=== PATIENT | female | born 1955 | race Caucasian/White ===

== ENCOUNTER 2019-12-01 10:35 | Outpatient (CLI) | payer MEDICARE, OTHER, SELFPAY ==
--- NOTE | ~2019-12-01 | XR_ITS ---
XR lumbar spine 2-3V DATE: 12/01/2019 11:25 INDICATION: Low back pain radiating to both hips TECHNIQUE: AP, lateral, coned lateral lumbosacral views COMPARISON: None FINDINGS: Diffuse osteopenia. There is degenerative change at the apophyseal joints at L4-5 and L5-S1 and associated grade 1 vlad listhesis at L4-5. No fracture or bone destruction. The included lower thoracic and lumbar pedicles are intact. The lumb ar and lumbosacral interspaces are well preserved. The sacroiliac joints are normal. Osteopenia is suggested. IMPRESSION: Degenerative change of the lower lumbar and lumbosacral apophyseal joints with associated grade 1 anterolisthesis at L4-5 Reviewed, dictated and finalized at location A.
--- NOTE | ~2019-12-01 | XR_ITS ---
XR hip BI wo pelvis DATE: 12/01/2019 11:25 INDICATION: Low back pain, bilateral hip pain. TECHNIQUE: AP and lateral views of each hip COMPARISON: None FINDINGS: No fracture or dislocation, avascular necrosis or bone destruction is evident. The hip join t spaces are preserved. The pubic symphysis and sacroiliac joints are intact. IMPRESSION: No significant abnormality of either hip Reviewed, dictated and finalized at location A.
== END 2019-12-01 10:36 | disposition home or self-care (01) ==
PROVIDERS: PCP Internal Medicine; Visit Provider Internal Medicine
DX: M54.5 Low back pain (principal); M54.10 Radiculopathy, site unspecified; M25.552 Pain in left hip; M25.551 Pain in right hip
CPT/HCPCS: 72100; 73521

== ENCOUNTER 2020-02-06 01:56 | Outpatient (CLI) | payer MEDICARE, OTHER, SELFPAY ==
[2020-02-06 19:02] LABS: SARS-CoV-2 RNA PCR Negative
== END 2020-02-06 01:57 | disposition home or self-care (01) ==
LOC: ANHCOVIDDT 01:57
PROVIDERS: PCP Internal Medicine; Visit Provider Surgery
DX: Z01.812 Encounter for preprocedural laboratory examination (principal); Z20.828 Contact with and (suspected) exposure to other viral communicable diseases
CPT/HCPCS: 87635; C9803; U0003

== ENCOUNTER 2020-02-08 00:48 | Day surgery (SDC) | payer MEDICARE, SELFPAY ==
[2020-02-02 13:04] VITALS: BMI 22.6
[2020-02-08 06:31] VITALS: BP 139/91; PULSE 75; RESP 16; TEMP 37; O2SAT 100; BMI 23.4
[2020-02-08] MEDS: LACTATED RINGERS 1,000 ML 150 ML IV CONT (06:47)
--- NOTE | 2020-02-08 06:50 | WPDANESEPPF ---
Anes - Initial Pre Proc Eval Procedure: Operation Date: 02/08/20 07:30 Proposed Procedures p Screening Colonoscopy - Ed Garza DO Date/Time: 02/08/20 06:50 Surgeon: Ed Garza DO Pre Op Diagnosis: Neoplasm Screening Patient Data Age: 64 Gender: F Height: 5 ft 3 in Weight: 60 kg Last Vital Signs Temp 98.6 F 02/08/20 06:31 Pulse 75 02/08/20 06:31 Resp 16 02/08/20 06:31 BP 139/91 H 02/08/20 06:31 Pulse Ox 100 02/08/20 06:31 Allergies Allergy/AdvReac Type Severity Reaction Status Date / Time Penicillins Allergy Intermediate Hives / Verified 02/08/20 06:37 Red Face Home Medications Medication Instructions Recorded Confirmed Type cholecalciferol (vitamin D3) 25 mcg PO DAILY 02/02/20 02/08/20 History [Vitamin D3] Patient hx anesthesia problems: none Family hx anesthesia problems: none [facility] Past Medical History Medical History (Updated 02/08/20 @ 06:50 by Richardson Giordano MD) Healthy adult Social History Social History Smoking status: Never smoker Alcohol intake: current Drinks per week: 4 Alcohol use details: WINE Substance use: never Substance use type: does not use Living arrangements: with family Spiritual care concerns: No Anes - Eval Final PreProcedure Day of Procedure 02/08/20 06:50 Patient weight: normal Heart: regular rate and rhythm Lungs: clear to auscultation Airway: Mallampati scale class II Neurological: alert and oriented Last oral intake: >/= 8 hours ASA classification: I Emergent: no Anesthetic plan: proceed Anesthesia type and monitoring: general GIVS and standard monitoring Informed Consent: The patient's anesthetic plan and its attendant risks and benefits were discussed with the patient/family/POA. Questions were solicited and answers provided to the satisfaction of the patient/family/POA.
--- NOTE | 2020-02-08 07:12 | PM.IMHP ---
H&P: HPI History of Present Illness Date/Time: 02/08/20 07:12 Chief complaint: Neoplasm Screening Narrative: Rukhsana Wei is a 64 year old female Who presents for colonoscopy. Last colonoscopy was 11-12 years ago. She reports this was normal. She denies any change in bowel habits. She denies any hematochezia or melena. She denies any family history of colon cancer. Review of Systems Review of Systems: All systems reviewed & are unremarkable except as noted in HPI and below Constitutional: Constitutional: Denies chills, Denies fever(s), Denies headache(s) and Denies weight loss Eyes: Eyes: Denies change in vision ENT: Denies dizziness, Denies headache(s), Denies neck mass and Denies throat swelling Cardiovascular: Cardiovascular: Denies chest pain, Denies lightheadedness and Denies dyspnea Respiratory: Respiratory: Denies cough, Denies dyspnea and Denies wheezing Gastrointestinal: Gastrointestinal: Denies abdominal pain, Denies change in bowel habits, Denies nausea and Denies vomiting Genitourinary: Genitourinary: Denies hematuria and Denies dysuria Musculoskeletal: Musculoskeletal: Reports as per HPI Integumentary/Breasts: Skin/Breast: Reports as per HPI Neurologic: Denies dizziness and Denies headache(s) Allergic/Immunologic: Allergic/Immunologic: Denies throat swelling and Denies wheezing [facility] Past Medical History Medical History Healthy adult Social History Social History Smoking status: Never smoker Alcohol intake: current Drinks per week: 4 Alcohol use details: WINE Substance use: never Substance use type: does not use Living arrangements: with family Spiritual care concerns: No Meds Home Medications and Allergies Home Medications Medication Instructions Recorded Confirmed Type cholecalciferol (vitamin D3) 25 mcg PO DAILY 02/02/20 02/08/20 History [Vitamin D3] Allergies Allergy/AdvReac Type Severity Reaction Status Date / Time Penicillins Allergy Intermediate Hives / Verified 02/08/20 06:37 Red Face Vital Signs Vital Signs - 24 hr 02/08/20 06:31 Temperature 37.0 C Pulse Rate 75 Respiratory Rate 16 Blood Pressure 139/91 H Pulse Oximetry 100 Exam Const: General: no acute distress and alert Orientation/consciousness: patient oriented x3 HENMT: Head: normocephalic and atraumatic Ears: hearing grossly normal bilaterally General nose exam: Normal nares present Mouth: Yes Normal oral and palatal mucosa present Eyes: Periorbital: periorbital findings normal Sclera: sclerae normal EOM: EOMs intact bilaterally Neck: Neck: normal visual inspection, no lymphadenopathy and trachea midline Chest: Chest palpation & inspection: normal inspection of the chest Resp: Effort & Inspection: normal respiratory effort Auscultation: clear to auscultation bilaterally Cardio: Jugular venous distension: no JVD Rate: regular rate Rhythm: regular rhythm Heart sounds: S1 normal heart sound present and S2 normal heart sound present Peripheral pulses: Peripheral pulses 2+ throughout GI: Inspection: normal to inspection GI Palp: Yes Soft to palpation, No Tenderness to palpation present (GI), No Guarding due to palpation present (GI) and No Rebound tenderness present Percussion: Yes normal to percussion Auscultation: normal bowel sounds : General: Yes no CVA tenderness Back/Spine/Pelvis: Back: no CVA tenderness Neuro: General: patient oriented x3, no focal motor deficits and CN's II-XI intact bilaterally Cognition (Neuro): normal cognition Speech: normal speech Motor exam (neuro): 5/5 motor strength present throughout Extrem: General: capillary refill normal and no clubbing, cyanosis or edema Assessment and Plan Assessment and plan (1) Screening for colorectal cancer: Code(s): Z12.11 - Encounter for screening for malignant
[2020-02-08 07:46] VITALS: BP 140/95; PULSE 103; RESP 17; O2SAT 100
[2020-02-08 07:55] VITALS: BP 140/99; PULSE 100; RESP 17; O2SAT 100
[2020-02-08 08:06] VITALS: BP 134/92; PULSE 89; RESP 20; O2SAT 100
--- NOTE | 2020-02-08 08:13 | ECG_ITS ---
Measurements Intervals [place] Rate: 80 P: 60 WI: 174 QRS: 43 QRSD: 118 T: -9 QT: 360 QTc: 417 Interpretive Statements SINUS RHYTHM INCOMPLETE RIGHT BUNDLE BRANCH BLOCK BASELINE ARTIFACT- I, II, III, AVR, AVF BORDERLINE ECG Electronically Signed On 02-08-2020 8:22:29 CDT by Eh Bella D.O.
[2020-02-08 08:16] VITALS: BP 143/100; PULSE 81; RESP 20; O2SAT 99
[2020-02-08 08:26] VITALS: BP 150/101; PULSE 77; RESP 19; O2SAT 99
--- NOTE | 2020-02-08 08:54 | SUR.PHASEII ---
[address] LE[address] EKG ORDER PER DR. PISANO.
== END 2020-02-08 08:52 | disposition home or self-care (01) ==
PROVIDERS: PCP Internal Medicine; Visit Provider Surgery
PROC: 0DJD8ZZ Inspection of Lower Intestinal Tract, Via Natural or Artificial Opening Endoscopic (ICD-10-PCS; CPT 45378; principal; 2020-02-08 07:30)
DX: Z12.11 Encounter for screening for malignant neoplasm of colon (principal); K64.8 Other hemorrhoids
CPT/HCPCS: G0121; 93005; J2704; J7120

== ENCOUNTER 2021-01-02 10:00 | Outpatient (RCR) | payer MEDICARE, OTHER, SELFPAY ==
--- NOTE | 2020-10-09 12:51 | PTOPEVAL ---
Thank you for referring Rukhsana Wei to [facility] [place].? The patient is scheduled to be seen for therapy? 1-2x/week for up to 12 weeks. Please review, sign, date and return this plan of care FLAVIO. I agree with and certify that the following plan of care is medically necessary. Referring Physician Date Attending Provider: Dr. Anders Denson M.D. *PT Outpatient Evaluation Start: 10/08/20 10:37 Freq: Status: Active Protocol: Document 10/08/20 10:38 [facility] (Rec: 10/08/20 11:37 [facility] [email or web address]) Therapy Assessment Status Assessment Status Assessment Status Evaluation Outpatient Past Medical History Neurological History Hx Neurological Disorders No Significant History Cardiovascular History Hx Cardiac Disorders No Significant History Respiratory History Hx Respiratory Disorders No Significant History Gastrointestinal History Hx Gastrointestinal Disorders No Significant History Genitourinary History Hx Genitourinary Disorders No Significant History Musculoskeletal History Hx Back Pain Yes Hx Orthopedic Surgery Yes Hx Spinal Surgery Yes: L4/5 fusion 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 Hematological History Hx Hematological Disorders No Significant History Endocrine History Hx Endocrine Disorders No Significant History HEENT History Hx Sinus Problems Yes: ALLERGIES Integumentary History Hx Skin Disorders No Significant History Reproductive History Hx Hysterectomy Yes: 1992 Psychosocial History Hx Psychiatric Disorders No Significant History Pain History History of Any Previous or Ongoing No Significant History Instance of Pain Anesthesia History Hx Post-Op Nausea/Vomiting Yes: WITH GENERAL Evaluation Information Problem Diagnosis Pain S/P lumbar fusion surgery Onset Surgery 08/29/20 Cause Cyst and spondylolithesis Additional Evaluation Detail Pt was recovering really well, walking 3+ miles a day and then became ill with a fever for 11 days and this caused the muscles to seize up and she has had significant pain since. Subjective Information Pt had pain that would not Query Text:As Reported By Patient/ subside and was significantly Family limiting her very active lifestyle. She enjoys walking , yoga, hiking, etc. Diagnostic Tests X-Rays For This Problem Yes MRI For This Problem Yes Previous Treatments Previous Treatments For This Problem Surgical repair Prior Level of Func
--- NOTE | 2020-11-15 13:24 | PTOPEVAL ---
Thank you for referring Rukhsana Wei to [facility].? The patient is scheduled to be seen for therapy? 1-2x/week for 6 weeks. Please review, sign, date and return this plan of care FLAVIO. I agree with and certify that the following plan of care is medically necessary. Referring Physician Date Attending Provider: Anders Denson MD *PT Outpatient Progress Note/POC Update Start: 10/08/20 10:37 Freq: Status: Active Protocol: Document 11/14/20 13:11 [facility] (Rec: 11/15/20 13:24 [facility] [email or web address]) Therapy Assessment Status Assessment Status Assessment Status Progress Pain Assessment Timing of Pain Assessment Timing of Pain Assessment Pre-Treatment Pain Scale Pain Scale Used Numeric (1 - 10) Self Report Pain Assessment Left Spine, Lumbar Reported Pain Level 4 Pain Description Aching,Tender on Palpation, Tightness Radicular Pain Location L SI and buttock Pain Frequency Intermittent Other Pain Aggravating Factors Changes day to day. Pain Behaviors Grimacing Pain Score Pain Score 4: Self Report Additional Pain Score Comments Difficult to roll over and pain had been decreased until last Wednesday, while out of town. Interventions Used Interventions Used By Clinicians Dry Needling,Exercise, Mobilization,Manual Therapy Techniques,Myofascial Release Pain Relief Interventions Used By Activity/ADL's,Exercise Patient Other Alleviating Interventions Continues to note more activities without pain Cervical and Lumbar ROM Lumbar ROM Lumbar Flexion (0-90) 60 Query Text:Active in Degrees Lumbar Extension (0-40) 20 Query Text:Active in Degrees Lumbar Lateral Flexion Right (0-40) 30 Query Text:Active in Degrees Lumbar Lateral Flexion Left (0-40) 30 Query Text:Active in Degrees Lateral Rotation Right (0-45) 40 Query Text:Active in Degrees Lateral Rotation Left (0-45) 40 Query Text:Active in Degrees Normal Lumbar Segmental Motion No: Limited in upper lumbar/ low thoracic especially Cervical and Lumbar Muscle Testing Lumbar Strength Upper Abdominal Strength 3 Fair Lower Abdominal Strength 3 Fair Upper Back Extension 2 Poor Lower Back Extension 2 Poor Trunk Rotation 3 Fair Muscle Length Testing Muscle Length Testing [employer] Test Shortened Muscles Short (R) Iliopsoas,Short (L) Iliopsoas Piriformis w/Hip Flexion <90 Degrees (L) Mild Tightness Piriformis
--- NOTE | 2021-01-08 11:26 | PCPTNOTE ---
Patient called & cancelled scheduled appointment this date due to leaving town.
--- NOTE | 2021-01-08 13:29 | PCPTNOTE ---
Pt had to cancel appointment the week of 12/23/20 due to therapist illness.
--- NOTE | 2021-01-08 14:24 | PCPTNOTE ---
This treatment is being continued on visit number [id number]. Please see documentation on both accounts to view progress.
== END 2021-01-06 11:42 | disposition home or self-care (01) ==
LOC: ANHPT 10:00
PROVIDERS: PCP Internal Medicine
DX: M54.5 Low back pain (principal)
CPT/HCPCS: 97110; 97140; 97161

== ENCOUNTER 2021-03-20 11:00 | Outpatient (RCR) | payer MEDICARE, SELFPAY ==
--- NOTE | 2021-01-08 14:15 | PCPTNOTE ---
I agree with and certify that the above recommended change(s) to the plan of care are medically necessary. ? Referring Physician?Date Attending Provider: PHYSICIAN NOT ON STAFF PROGRESS REPORT Rukhsana Wei has completed a total number of 18 treatment sessions for S/P lumbar fusion since 10/08/20. Summary of Progress: Pt has continued to progress with therapy. She has always been very active and is anxious to return to her active lifestyle of hiking, yoga, caregiving, etc. Her ROM, strength, and symmetry of bony landmarks has continued to improve, but she still remains weak in the trunk extensors and core stabilizers. She has continued to take pain medication (Tylenol or Ibuprofen) in the evenings to be able to rest as she experiences radiating tightness in the lumbar and upper pelvic region especially at night and when she lays down. This is likely due to her attempt to remain active and continue progress but I think she needs to be monitored and guided appropriately in the return to her PLF. Recommendations: Continue to see 1x/week for continued progression of HEP and tissue work as needed. Thank you for referring Rukhsana Wei to [facility].? The patient is scheduled to be seen for therapy? 1x/week for 8-12 weeks.? Please review, sign, date and return this plan of care FLAVIO.
--- NOTE | 2021-01-08 14:23 | PCPTNOTE ---
This treatment is being continued from visit number [id number]. Please see documentation on both accounts to view progress.
--- NOTE | 2021-02-12 14:13 | PCPTNOTE ---
Pt has received an updated MD order so she will be returning for therapy 02/13/21.
--- NOTE | 2021-03-20 12:55 | PCPTNOTE ---
Attending Provider: PHYSICIAN NOT ON STAFF Patient:Rukhsana Wei Date of :1955 Patient has had her final treatment on 03/11/2021, therefore she will be discharged at this time. Patient?s initial visit was on 01/08/2021 13:00 and she had a total of 26 visits. The goals have been partially met: She demonstrates symmetry in WBing through the pelvis and trunk. Pt's ROM ability is intermittent depending on current pain, stiffness, etc. Pt is very active and does many of her preferred activity but not always without discomfort. The L QL remains thick and tends to spasm, leading to the difficulty in rolling, etc. Hip ROM is WFL. Back ROM is 75% of normal with tightness at end range. Pt participates in lumbar stabilization strengthening provided by myself but is also participating in a local strength training program. She walks multiple-miles, ~5days a week. Thank you for referring this patient to [facility]. Please review, sign, date and return this discharge summary FLAVIO. I have been updated about the patient's current status and I agree with discharge from the above service at this time. Referring Physician Date
== END 2021-03-21 10:50 | disposition home or self-care (01) ==
LOC: ANHPT 11:00
PROVIDERS: PCP Internal Medicine
DX: M54.5 Low back pain (principal)
CPT/HCPCS: 20560; 97140